=== PATIENT | male | born 1980 | race Caucasian/White ===

== ENCOUNTER 2017-01-20 01:44 | Inpatient (IN) | payer MEDICAID ==
[~2017-01-20] VITALS: Ht 182.9 cm; Wt 66.0 kg
[2017-01-20] VITALS (8 sets, daily range): BP systolic 113–135; BP diastolic 59–85; PULSE 53–68; RESP 17–18; TEMP 96.7–97.9; O2SAT 98–100
[2017-01-20] MEDS ORDERED: KETOROLAC TROMETHAMINE 30 MG/ML (IVP) VIAL IVP ONE (02:45)
[2017-01-20] MEDS ORDERED: TETANUS/DIPHTHERIA TOXOID ADULT 0.5 ML VIAL IM ONE (02:45)
[2017-01-20 03:21] LABS: AUTOMATED NEUTROPHIL # 6.4 TH/MM3 (1.8-7.7); BASOPHIL % 0.3 % (0.0-2.0); EOSINOPHIL # 0.1 TH/MM3 (0-0.4); EOSINOPHIL % 1.1 % (0.0-4.0); HEMATOCRIT 42.2 % (39.0-51.0); HEMO FLAGS DIFF FINAL; LYMPH % 17.3 % (9.0-44.0); LYMPHOCYTE # 1.7 TH/MM3 (1.0-4.8); MEAN CELL VOLUME 87.1 FL (80.0-100.0); MEAN CORPUSCULAR HEMOGLOBIN 29.7 PG (27.0-34.0); MEAN CORPUSCULAR HGB CONC 34.1 % (32.0-36.0); MONO % 15.6 % (0.0-8.0); NEUT % 65.7 % (16.0-70.0); PLATELET COUNT 202 TH/MM3 (150-450); RED BLOOD COUNT 4.84 MIL/MM3 (4.50-5.90); RED CELL DISTRIBUTION WIDTH 13.5 % (11.6-17.2); WHITE BLOOD COUNT 9.8 TH/MM3 (4.0-11.0)
[2017-01-20] MEDS ORDERED: AMPICILLIN-SULBACTAM INJ 3 GM in SODIUM CHLORIDE 0.9% INJ 100 ML IV ONE (03:30)
[2017-01-20 03:41] LABS: BICARBONATE 33.8 MEQ/L (21.0-32.0); POTASSIUM 5.2 MEQ/L (3.5-5.1)
--- NOTE | 2017-01-20 03:56 | RADRPT ---
EXAM DATE/TIME: 01/20/2017 03:12 [place] COMPARISON: No previous studies available for comparison. INDICATIONS : Dog bite to left hand, possible foreign body. MEDICAL HISTORY : None. SURGICAL HISTORY : None. ENCOUNTER: Initial ACUITY: 1 day PAIN SCORE: 8/10 LOCATION: Left hand FINDINGS: Three view examination of the left hand demonstrates no soft tissue swelling, dislocation, or fractur e. The carpal bones appear intact. The interphalangeal and metacarpophalangeal joints are intact. Bony mineralization is normal. CONCLUSION: Unremarkable examination of the left hand. Bipin Palacios MD on January 20, 2017 at 3:54 Board Certified Radiologist. This report was verified electronically.
--- NOTE | 2017-01-20 04:09 | PD ---
HPI Chief Complaint: Bite or Sting Time Seen by Provider: 02:34 Travel History International Travel<30 days: No Contact w/Intl Traveler<30days: No Traveled to known affect area: No History of Present Illness HPI 36-year-old male presents to the emergency department for evaluation of swelling and pain and decreased range of motion of the digits of the left hand secondary to injury sustained from a dog bite. Patient states that on morning 01/18/17 he was his dog and his [id number]'s dog from fighting. Both dogs are healthy and immunizations are current. Patient states that he accidentally was bitten on the dorsum of his hand with numerous scrapes to the digits. Patient also reports that 1 week ago he was injured on the left foot by the dog's from a dog fight. Patient does not know his tetanus status. Patient is right-handed. Patient is not diabetic. Patient is not notice any ascending erythema or axillary tenderness or lymphadenopathy. Patient reports subjective fever and chills. Patient states as soon as the bite occurred he was concerned that he had broken his hand but did not decided to come for medical attention until this time. Patient states that sensation is intact but decreased range of motion secondary to soft tissue swelling. The patient rates his pain 4/0 in intensity. PFSH Past Medical History Narrative Medical Leukemia in remission; no surgery; tobacco use; nursing notes reviewed Medical History: Denies Significant Hx Autoimmune Disease: Yes (LEUKEMIA THAT SAYS BEEN REMISSION) Diminished Hearing: No Tetanus Vaccination: Unknown Influenza Vaccination: No Past Surgical History Surgical History: No Previous Surgery Social History Alcohol Use: No Tobacco Use: Yes (1/2 PPD) Substance Use: No Allergies-Medications (Allergen,Severity, Reaction): Coded Allergies: No Known Allergies (Unverified , 01/20/17) Reported Meds & Prescriptions Reported Meds & Active Scripts Active No Active Prescriptions or Reported Medications Review of Systems Except as stated in HPI: all other systems reviewed are Neg General / Constitutional: Positive: Fever (subjective), Chills (subjective) HENT: No: Headaches, Congestion Cardiovascular: No: Chest Pain or Discomfort Respiratory: No: Shortness of Breath Gastrointestinal: No: Nausea, Vomiting Genitourinary: No: Dysuria, Flank Pain Musculoskeletal: Positive: Myalgias, Arthralgias, Limited ROM (secondary to swelling digits of left hand), Pain Skin: Positive Other (left hand swelling and superficial abrasions), No Rash Neurologic: No: Weakness Psychiatric: No: Anxiety Endocrine: No: Heat Intolerance Hematologic/Lymphatic: No: Easy Bruising Physical Exam Narrative GENERAL: Well-developed well-nourished male in no acute distress no respiratory distress SKIN: Warm and dry. HEAD: Normocephalic. EYES: No scleral icterus. No injection or drainage. NECK: Supple, trachea midline. No JVD or lymphadenopathy. CARDIOVASCULAR: Regular rate and rhythm without murmurs, gallops, or rubs. RESPIRATORY: Breath sounds equal bilaterally. No accessory muscle use. GASTROINTESTINAL: Abdomen soft, non-tender, nondistended. MUSCULOSKELETAL: No cyanosis, or edema. Attention left hand left upper extremity soft tissue swelling affecting the second third and fourth digits of the left hand with puncture wound overlying the third metacarpal just proximal to the MCP and puncture wound richards aspect just proximal to the 4th MCP and proximal and lateral/ulnar aspect of the 5th MCP; otherwise superficial abrasions affecting the dorsum of the digits of the left hand; sensation intact ; capillary refill brisk and less than 2 seconds per digit. Patient has intact extension of each digit; however thumb apposition is limited by soft tissue swelling affecting the third and fourth and fifth digits. BACK: Nontender without obvious deformity. No CVA tenderness. Data Data Last Documented VS Vital Signs Date Time Temp Pulse Resp B/P Pulse Ox O2 Delivery O2 Flow Rate FiO2 01/20/17 04:38 62 18 119/85 100 Room Air 01/20/17 01:47 97.7 Orders Basic Metabolic Panel (Bmp) (01/20/17 02:34) Complete Blood Count With Diff (01/20/17 02:34) Blood Culture (01/20/17 02:34) Wound Culture And Gram Stain (01/20/17 02:34) Iv Access Insert/Monitor (01/20/17 02:34) Ketorolac Inj (Toradol Inj) (01/20/17 02:45) Tetanus/Diphtheria Tox Adult (Tetanus/Di (01/20/17 02:45) Hand, Complete ([id number]) (01/20/17 ) Lactic Acid (01/20/17 02:36) Ampicillin-Sulbactam Inj (Unasyn Inj) (01/20/17 03:30) NPO (01/20/17 05:23) Admit Order (Ed Use Only) (01/20/17 ) Diet Npo (01/21/17 Breakfast) Diet Npo (01/20/17 Breakfast) ^ Saline Lock (01/20/17 06:20) Resp Oxygen Douglas C Titrat 1-4 L (01/20/17 ) Notify Dr: Other (01/20/17 06:20) Sodium Chloride 0.9% Flush (Ns Flush) (01/20/17 09:00) Sodium Chloride 0.9% Flush (Ns Flush) (01/20/17 06:30) Consult Hand Surgery (01/20/17 ) Labs Laboratory Tests Test 01/20/17 02:40 White Blood Count 9.8 TH/MM3 Red Blood Count 4.84 MIL/MM3 Hemoglobin 14.4 GM/DL Hematocrit 42.2 % Mean Corpuscular Volume 87.1 FL Mean Corpuscular Hemoglobin 29.7 PG Mean Corpuscular Hemoglobin 34.1 % Concent Red Cell Distribution Width 13.5 % Platelet Count 202 TH/MM3 Mean Platelet Volume 8.4 FL Neutrophils (%) (Auto) 65.7 % Lymphocytes (%) (Auto) 17.3 % Monocytes (%) (Auto) 15.6 % Eosinophils (%) (Auto) 1.1 % Basophils (%) (Auto) 0.3 % Neutrophils # (Auto) 6.4 TH/MM3 Lymphocytes # (Auto) 1.7 TH/MM3 Monocytes # (Auto) 1.5 TH/MM3 Eosinophils # (Auto) 0.1 TH/MM3 Basophils # (Auto) 0.0 TH/MM3 CBC Comment DIFF FINAL Differential Comment Sodium Level 140 MEQ/L Potassium Level 5.2 MEQ/L Chloride Level 103 MEQ/L Carbon Dioxide Level 33.8 MEQ/L Anion Gap 3 MEQ/L Blood Urea Nitrogen 27 MG/DL Creatinine 1.05 MG/DL Estimat Glomerular Filtration 80 ML/MIN Rate Random Glucose 94 MG/DL Lactic Acid Level 1.7 mmol/L Calcium Level 9.2 MG/DL MDM Medical Decision Making Medical Screen Exam Complete: Yes Emergency Medical Condition: Yes Medical Record Reviewed: Yes Interpretation(s) CBC & BMP Diagram 01/20/17 02:40 Vital Signs Date Time Temp Pulse Resp B/P Pulse Ox O2 Delivery O2 Flow Rate FiO2 01/20/17 01:47 97.7 68 135/83 98 Left Hand: FINDINGS: Three view examination of the left hand demonstrates no soft tissue swelling, dislocation, or fracture. The carpal bones appear intact. The interphalangeal and metacarpophalangeal joints are intact. Bony mineralization is normal. CONCLUSION: Unremarkable examination of the left hand. Bipin Palacios MD on January 20, 2017 at 3:54 Board Certified Radiologist. This report was verified electronically. Differential Diagnosis Animal/dog bite, puncture wound, abscess, fracture, tenosynovitis, tendon injury , neurovascular injury, retained foreign body Narrative Course IV access obtained specimens collected and sent for resulting tetanus status updated imaging study ordered Patient administered Unasyn 3 g IV piggyback No evidence for fracture or retained foreign body by imaging of the left hand. Lab values resulted total white cell count normal without left shift, lactic acid not elevated, vital signs are normal range without tachycardia or tachypnea ; patient does not meet sirs criteria The patient is aware of and agreeable with blood and for admission for IV antibiotics and hand surgery consult Physician Communication Physician Communication call placed to Hand surgeon nurse companion discussed with Dr Kyle; discussed with Dr Yancey for admission Diagnosis Primary Impression: Animal bite of hand Qualified Code: S61.452A - Animal bite of hand, left, initial encounter Admitting Information Admitting Physician Requests: Admit Scripts No Active Prescriptions or Reported Meds Tiffanie Miller MD Jan 20, 2017 04:09
[2017-01-20] MEDS ORDERED: SODIUM CHLORIDE 0.9% FLUSH 10 ML FLUSH IVF PRN (06:30)
[2017-01-20] MEDS ORDERED: SODIUM CHLORIDE 0.9% FLUSH 10 ML FLUSH IV FLUSH PRN (07:00)
[2017-01-20] MEDS ORDERED: ONDANSETRON HCL 4 MG/2 ML VIAL IVP PRN (07:00)
[2017-01-20] MEDS ORDERED: LACTULOSE SYRUP 20 GM/30 ML CUP PO PRN (07:00)
[2017-01-20] MEDS ORDERED: MAGNESIUM HYDROXIDE SUSP 30 ML CUP PO PRN (07:00)
[2017-01-20] MEDS ORDERED: BISACODYL 10 MG SUPP RECTAL PRN (07:00)
[2017-01-20] MEDS ORDERED: SENNOSIDES 8.6 MG TAB PO PRN (07:00)
--- NOTE | 2017-01-20 07:01 | HHI.HP ---
HPI Service [facility] Hospitalists Primary Care Physician No Primary Care Physician Admission Diagnosis Left hand cellulitis; animal/dog bite Diagnoses: Chief Complaint: pain in left hand, fever, chills Travel History International Travel<30 Days: No Contact w/Intl Traveler <30 Da: No Traveled to Known Affected Are: No History of Present Illness This is a 36-year-old male without significant past medical history who presents to [facility] complaining of a dog bite in his left hand. The patient states that this past he was bitten by a dog that belongs to her [id number]. The patient states that he was having some pain, however he started experiencing worsening pain on Sunday night. He also states he has had fevers and chills. Denies chest pain, short of breath, denies dysuria, denies abdominal pain. Patient states the dog is current on vaccines. Review of Systems As per history of present illness, other systems reviewed by me and negative Past Family Social History Past Medical History Psoriasis Past Surgical History Denies Reported Medications No Active Prescriptions or Reported Medications Allergies: Coded Allergies: No Known Allergies (Unverified , 01/20/17) Active Ordered Medications Current Medications Medications (Trade) Dose Ordered Sig/Allison Route Start Time Stop Time Status Last Admin (NS Flush) 2 ml BID IV FLUSH 01/20/17 09:00 (NS Flush) 2 ml UNSCH PRN IVF 01/20/17 06:30 Family History There is family history of breast and lung cancer Social History She smokes half a pack per day. Patient denies drinking alcohol Patient denies illicit drug use. The patient is single and has 1 children with his fiance. Physical Exam Vital Signs Vital Signs Date Time Temp Pulse Resp B/P Pulse Ox O2 Delivery O2 Flow Rate FiO2 01/20/17 06:23 98 01/20/17 04:38 62 18 119/85 100 Room Air 01/20/17 01:47 97.7 68 135/83 98 Physical Exam GENERAL: This is a well-nourished, well-developed patient, in no apparent distress. SKIN: No rashes, ecchymoses or lesions. Cool and dry. HEAD: Atraumatic. Normocephalic. No temporal or scalp tenderness. EYES: Pupils equal round and reactive. Extraocular motions intact. No scleral icterus. No injection or drainage. ENT: Nose without bleeding, purulent drainage or septal hematoma. Throat without erythema, tonsillar hypertrophy or exudate. Uvula midline. Airway patent. NECK: Trachea midline. No JVD or lymphadenopathy. Supple, nontender, no meningeal signs. CARDIOVASCULAR: Regular rate and rhythm without murmurs, gallops, or rubs. RESPIRATORY: Clear to auscultation. Breath sounds equal bilaterally. No wheezes , rales, or rhonchi. GASTROINTESTINAL: Abdomen soft, non-tender, nondistended. No hepato-splenomegaly , or palpable masses. No guarding. MUSCULOSKELETAL: Left hand is swollen, erythematous and there are puncture connelly on the hand. There is no drainage observed. Her pulse is palpable on both upper extremities. NEUROLOGICAL: Awake and alert. Cranial nerves II through XII intact. Motor and sensory grossly within normal limits. Five out of 5 muscle strength in all muscle groups. Normal speech. Laboratory Laboratory Tests Test 01/20/17 02:40 White Blood Count 9.8 Red Blood Count 4.84 Hemoglobin 14.4 Hematocrit 42.2 Mean Corpuscular Volume 87.1 Mean Corpuscular Hemoglobin 29.7 Mean Corpuscular Hemoglobin 34.1 Concent Red Cell Distribution Width 13.5 Platelet Count 202 Mean Platelet Volume 8.4 Neutrophils (%) (Auto) 65.7 Lymphocytes (%) (Auto) 17.3 Monocytes (%) (Auto) 15.6 Eosinophils (%) (Auto) 1.1 Basophils (%) (Auto) 0.3 Neutrophils # (Auto) 6.4 Lymphocytes # (Auto) 1.7 Monocytes # (Auto) 1.5 Eosinophils # (Auto) 0.1 Basophils # (Auto) 0.0 CBC Comment DIFF FINAL Differential Comment Sodium Level 140 Potassium Level 5.2 Chloride Level 103 Carbon Dioxide Level 33.8 Anion Gap 3 Blood Urea Nitrogen 27 Creatinine 1.05 Estimat Glomerular Filtration 80 Rate Random Glucose 94 Lactic Acid Level 1.7 Calcium Level 9.2 Date/Time Procedure Status Source Growth 01/20/17 02:45 Gram Stain Received Wound Hand Pending 01/20/17 02:45 Wound Culture Received Wound Hand Pending 01/20/17 02:40 Aerobic Blood Culture Received Blood Peripheral Pending 01/20/17 02:40 Anaerobic Blood Culture Received Blood Peripheral Pending Result Diagram: 01/20/17 0240 01/20/17 0240 Imaging Last Impressions Hand X-Ray 01/20/17 0000 Signed Impressions: Service Date/Time: Friday, January 20, 2017 03:12 - CONCLUSION: Unremarkable examination of the left hand. Bipin Palacios MD Reviewed by me Assessment and Plan Problem List: (1) Animal bite of hand ICD Code: S61.459A Status: Acute (2) Cellulitis of hand, left ICD Code: L03.114 Status: Acute (3) Hyperkalemia ICD Code: E87.5 Status: Acute Assessment and Plan The patient to the medical floor Continue IV antibiotics, patient was given IV Unasyn Hand surgery consultation - ED physician contacted Dr. Kyle Keep nothing by mouth IV fluids Pain control with IV morphine. Subcutaneous heparin for DVT prophylaxis PPI for GI prophylaxis. Treatment mild hyperkalemia 5.2 with IV fluids Code Status Full code Discussed Condition With ED physician, patient Physician Certification 2 Midnight Certification Type: Admission for Inpatient Services Order for Inpatient Services The services are ordered in accordance with Medicare regulations or non- Medicare payer requirements, as applicable. In the case of services not specified as inpatient-only, they are appropriately provided as inpatient services in accordance with the 2-midnight benchmark. Estimated LOS (days): 2 days is the estimated time the patient will need to remain in the hospital, assuming treatment plan goals are met and no additional complications. Post-Hospital Plan: Home Problem Qualifiers (1) Animal bite of hand: Qualified Code: S61.452A - Animal bite of hand, left, initial encounter Beni Ortiz MD Jan 20, 2017 07:01
[2017-01-20] MEDS: DOCUSATE SODIUM 50 MG/SENNA 8.6 MG TAB PO SCH ×2 (08:20→20:49)
[2017-01-20] MEDS: AMPICILLIN-SULBACTAM INJ 3 GM in SODIUM CHLORIDE 0.9% INJ 100 ML IV SCH ×3 (08:22→20:48)
[2017-01-20] MEDS: SODIUM CHLOR 0.9% 1000 ML INJ 1,000 ML IV SCH ×3 (08:22→20:48)
--- NOTE | 2017-01-20 08:30 | HHI.PR ---
Subjective Remarks resting comfortably. pain is controlled. no fever. d/w the RN. Objective Vitals Vital Signs Date Time Temp Pulse Resp B/P Pulse Ox O2 Delivery O2 Flow Rate FiO2 01/20/17 07:00 97.6 55 17 117/83 100 Room Air 01/20/17 06:23 98 01/20/17 04:38 62 18 119/85 100 Room Air 01/20/17 01:47 97.7 68 135/83 98 Result Diagram: 01/20/17 0240 01/20/17 0240 Imaging Last Impressions Hand X-Ray 01/20/17 0000 Signed Impressions: Service Date/Time: Friday, January 20, 2017 03:12 - CONCLUSION: Unremarkable examination of the left hand. Bipin Palacios MD Objective Remarks GENERAL: This is a well-nourished, well-developed patient, in no apparent distress. CARDIOVASCULAR: Regular rate and regular rhythm without murmurs, gallops, or rubs. RESPIRATORY: Clear to auscultation. Breath sounds equal bilaterally. No wheezes , rales, or rhonchi. GASTROINTESTINAL: Abdomen soft, non-tender, nondistended. Normal, active bowel sounds MUSCULOSKELETAL:left hand with erythema and swelling NEURO: Alert & Oriented x4 to person, place, time, situation. Moves all ext x4 Procedures none Medications and IVs Current Medications Ketorolac Tromethamine (Toradol Inj) 30 mg ONCE ONCE IVP Last administered on 01/20/17 02:54; Start 01/20/17 at 02:45; Stop 01/20/17 at 02:46; Status DC Tetanus/ Diphtheria Toxoids 0.5 ml 0.5 ml ONCE ONCE IM Last administered on 01/20 02:58; Start 01/20/17 at 02:45; Stop 01/20/17 at 02:46; Status DC Ampicillin Sodium/ Sulbactam Sodium/ Sodium Chloride (Unasyn Inj/NS Inj) 100 ml @ 200 mls/hr ONCE ONCE IV Last administered on 01/20/17 03:47; Start 01/20/17 at 03:30; Stop 01/20/17 at 03:59; Status DC Sodium Chloride (NS Flush) 2 ml BID IV FLUSH ; Start 01/20/17 at 09:00; Stop 01/20 at 09:00; Status DC Sodium Chloride 2 ml 2 ml UNSCH PRN IVF FLUSH AFTER USING IV ACCESS; Start 01/20 at 06:30; Stop 01/20/17 at 07:11; Status DC Sodium Chloride (NS 1000 ml Inj) 1,000 ml @ 100 mls/hr Q10H IV Last administered on 01/20/17 08:22; Start 01/20/17 at 08:00 Sodium Chloride (NS Flush) 2 ml UNSCH PRN IV FLUSH FLUSH AFTER USING IV ACCESS ; Start 01/20/17 at 07:00 Sodium Chloride (NS Flush) 2 ml BID IV FLUSH ; Start 01/20/17 at 09:00 Ondansetron HCl (Zofran Inj) 4 mg Q6H PRN IVP NAUSEA OR VOMITING; Start at 07:00 Heparin Sodium (Porcine) (Heparin Inj) 5,000 units Q8H SQ ; Start 01/20/17 at 07: 00; Status UNV Senna/Docusate Sodium (Paulina-Colace) 1 tab BID PO ; Start 01/20/17 at 09:00 Magnesium Hydroxide (Milk Of Magnesia Liq) 30 ml Q12H PRN PO MILD - MODERATE CONSTIPATION; Start 01/20/17 at 07:00 Sennosides (Senokot) 17.2 mg Q12H PRN PO MODERATE - SEVERE CONSTIPATION; Start 01/20/17 at 07:00 Bisacodyl (Dulcolax Supp) 10 mg DAILY PRN RECTAL SEVERE CONSITIPATION; Start at 07:00 Lactulose 30 ml 30 ml DAILY PRN PO SEVERE CONSITIPATION; Start 01/20/17 at 07:00 Ampicillin Sodium/ Sulbactam Sodium/ Sodium Chloride (Unasyn Inj/NS Inj) 100 ml @ 200 mls/hr Q6H IV Last administered on 01/20/17 08:22; Start 01/20/17 at 09: 00 Oxycodone/ Acetaminophen (Percocet 5-325 Mg) 1 tab Q4H PRN PO PAIN SCALE 1 TO 4; Start 01/20/17 at 07:15 Oxycodone/ Acetaminophen (Percocet 5-325 Mg) 2 tab Q4H PRN PO PAIN SCALE 5 TO 10; Start 01/20/17 at 07:15 A/P Assessment and Plan A/P - left hand dog-bite cellulitis continue with IV antibiotics- continue with pain control- follow the cultures. hand surgery consulted. Love Dove MD Jan 20, 2017 08:30
[2017-01-20] MEDS: SODIUM CHLORIDE 0.9% FLUSH 10 ML FLUSH IV FLUSH SCH ×2 (08:54→20:48)
[2017-01-20] MEDS ORDERED: SODIUM CHLORIDE 0.9% FLUSH 10 ML FLUSH IV FLUSH SCH (09:00)
[2017-01-20] MEDS ORDERED: HEPARIN SODIUM - SQ 10,000 UNITS/ML VIAL SQ SCH (09:00)
[2017-01-20] MEDS ORDERED: ONDANSETRON HCL 4 MG/2 ML VIAL IV PUSH ONE (12:00)
[2017-01-20] MEDS ORDERED: PROPOFOL 200 MG/20 ML AMP IV ONE (12:00)
[2017-01-20] MEDS: oxyCODONE/ACETAMINOPHEN 5 MG/325 MG TAB PO PRN ×2 (15:40→23:49)
[2017-01-20] MEDS ORDERED: NEOMYCIN/POLYMYXIN 1 ML G.U. IRRIGANT TOPICAL ONE (19:50)
[2017-01-20] MEDS ORDERED: LIDOCAINE HCL 2% 50 ML VIAL INFIL ONE (20:10)
[2017-01-20] MEDS ORDERED: *MEPERIDINE 25 MG INJ VIAL PERIprocedural Use ONLY ONE (20:44)
--- NOTE | 2017-01-20 21:12 | PD.ORT.PN ---
Subjective Subjective Remarks Patient preoperatively reported difficulty flexing and extending fingers, specifically ring and middle fingers of left hand. Denies paresthesias. Objective Vitals Vital Signs Date Time Temp Pulse Resp B/P Pulse Ox O2 Delivery O2 Flow Rate FiO2 01/20/17 21:00 46 12 148/96 100 Nasal Cannula 2 01/20/17 20:45 48 12 141/92 100 Nasal Cannula 2 01/20/17 20:34 96.9 51 12 139/93 100 Nasal Cannula 2 01/20/17 15:59 96.7 59 18 123/59 98 01/20/17 11:55 96.8 57 18 113/75 99 01/20/17 09:50 97.8 53 18 116/72 98 01/20/17 07:00 97.6 55 17 117/83 100 Room Air 01/20/17 06:23 98 01/20/17 04:38 62 18 119/85 100 Room Air 01/20/17 01:47 97.7 68 135/83 98 I/O 01/19/17 01/19/17 01/19/17 01/20/17 01/20/17 01/20/17 06:59 14:59 22:59 06:59 14:59 22:59 Intake Total 700 ml Output Total 0 ml Balance 700 ml Intake Oral 0 ml IV Total 100 ml Other 600 ml Output Urine Total 0 ml Estimated Blood Loss 0 ml Other 0 ml # Voids 2 Result Diagram: 01/20/17 0240 01/20/17 0240 Imaging Last 24 hours Impressions Hand X-Ray 01/20/17 0000 Signed Impressions: Service Date/Time: Friday, January 20, 2017 03:12 - CONCLUSION: Unremarkable examination of the left hand. Bipin Palacios MD Objective Remarks Dressing in place, <2 sec capillary refill all fingers, able to wiggle fingers, sitlt m/u/r Assessment & Plan Assessment and Plan 36yM s/p dog bite left hand POD0 s/p I&D abscess left hand -Intraoperatively pus in dorsal wound just proximal to 3rd mcp, no involvement of joint, packing in place, other wounds with no obvious purulence & chromic in place -Continue IV Ab per primary team, follow cultures -Elevate hand, ROM left hand -possible d/c Tue or once cultures result and ROM improved, will follow Tanvi Kyle MD 1, 2017 21:12
--- NOTE | 2017-01-20 22:04 | MB ---
cc: SYDNEY SARABIA DATE OF CONSULTATION 01/20/2017 REASON FOR CONSULTATION Dog bite left hand. 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 He states that he was breaking up a dog bite between two pit bulls on 01/18/2017 when the dog bit his left hand, specifically over the dorsum of the left hand at the level of the metacarpal phalangeal joint and volarly over the ring finger at the level of the A1 oneal. The patient cleaned the wounds and iced the hand and presented to the emergency room on 01/20/2017 for worsening swelling of the left hand, subjective fevers and decreased range of motion of the left hand. He is right hand dominant. He denies any other significant prior injury to the left hand. He does have a history of psoriasis and was on Enbrel but is not taking it at this time due to insurance issues. The patient denies significant paresthesias in the hand. He reports pain and decreased range of motion. He does have some superficial scratches on the right hand but has good range of motion of the right hand. PAST MEDICAL HISTORY 1. Leukemia in remission. 2. Psoriasis. PAST SURGICAL HISTORY Denies. SOCIAL HISTORY Smokes half pack per day. Denies drug use or alcohol use, currently unemployed. ALLERGIES NO KNOWN DRUG ALLERGIES. MEDICATIONS Denies, past use of Enbrel. PHYSICAL EXAMINATION VITAL SIGNS: Temperature was 97.7, pulse 62, blood pressure 119/85. Exam of the left hand shows multiple bites, again the most prominent dorsally just proximal to the third metacarpal phalangeal joint and volarly at the level of the A1 oneal of the ring finger. He also has more superficial bites over the small finger volarly and dorsally over the ring finger at the level of the PIP joint. Function is intact of FDS and FDP to all of the fingers. The patient has significant difficulty in making a fist with the left hand due to the swelling over the left hand. No pain with range of motion of the wrist. Sensation grossly intact in the median, ulnar abd radial distribution 2+ radial pulse. No ascending erythema. LABORATORY DATA White count 9.8, CRP 4.78, ESR 12. IMAGING STUDIES X-rays shows no evidence of fracture. ASSESSMENT/PLAN A 36-year-old male status post dog bite to the left hand with swelling on the dorsum of the left hand at the level of the third metacarpal phalangeal joint and volarly over the A1 oneal. The patient has been in the hospital on IV antibiotics for approximately eight hours with minimal improvement in his symptoms. As of this time, I recommended surgical intervention including debridement of the extensor and flexor tendon sheaths. Surgery is indicated and he elected to proceed. He will remain in the hospital on IV antibiotics. He understands the importance of elevating the hand and working on range of motion. Risks were explained to include but currently limited to sepsis, wound complications, persistent infection, persistent stiffness of the hand, difficulty with the hand and he elects to proceed. MD BRITNEY Urbina/ /9:37 PM /9:52 PM KERRI
[2017-01-20] MEDS ORDERED: fentaNYL CITRATE 250 MCG/5 ML AMP ONE (23:53)
[2017-01-21 00:15] VITALS: BP 122/76; PULSE 56; RESP 16; TEMP 97.8; O2SAT 99
[2017-01-21] MEDS: AMPICILLIN-SULBACTAM INJ 3 GM in SODIUM CHLORIDE 0.9% INJ 100 ML IV SCH ×4 (03:25→20:46)
[2017-01-21 04:45] VITALS: BP 116/75; PULSE 56; RESP 18; TEMP 98; O2SAT 99
--- NOTE | 2017-01-21 06:18 | MP ---
cc: TANVI KYLE DATE OF SURGERY: 01/20/2017 PREOPERATIVE DIAGNOSIS Dog bite left hand. POSTOPERATIVE DIAGNOSIS Dog bite left hand. PROCEDURE 1. Incision and drainage abscess extensor tendon sheath, left hand 2. Incision and drainage flexor tendon sheath, left ring finger. SURGEON Dr. Tanvi Kyle ANESTHESIA General and local TOURNIQUET TIME 11 minutes at 250 mmHg. SPECIMEN Cultures x2 DRAINS Packing. INDICATIONS FOR PROCEDURE Gonzalez Patton is a 36-year-old male who sustained a dog bite to the left hand on 01/18/2017. He did not present for evaluation to the hospital until 01/20/2017. He noted minimal improvement while in the hospital for several hours on IV antibiotics. Due to the significant stiffness and swelling over the hand as well as elevation in the CRP, I recommended incision and drainage. He elected to proceed. Risks were explained but not limited to sepsis, persistent infection, wound complications, stiffness, pain, need for additional procedures, long-term dysfunction of the hand, and he elected to proceed. DESCRIPTION OF PROCEDURE The patient was identified in the preoperative holding area. The correct extremity was marked. The patient was taken to the operating room. Anesthesia was induced. The left upper extremity was prepped and draped in normal sterile fashion. Upon prepping the hand, there was obvious purulent drainage from the dorsal wound just proximal to the third metacarpal phalangeal joint. This was sent for culture. Then tourniquet was inflated without Esmarch for 11 minutes to 250 mmHg. The dorsal wound was extended proximally and distally, and this was a wound with the most significant purulence. This was irrigated with 3 liters of antibiotic saline. The wound over the volar aspect of the ring finger at the level of the A1 oneal was also incised and irrigated along the flexor tendon sheath, although there was not significant purulence in this wound. The other wounds over the volar aspect of the small finger as well as the dorsal PIP of the ring finger was also slightly opened and irrigated without significant purulence. These wounds were closed loosely with chromic. The major wound again on the dorsum of the hand with packing was placed in addition to loose chromic. Tourniquet was released. Hemostasis obtained, 15 cc of 2% lidocaine with no epinephrine was used for local anesthesia. The patient was placed into a soft dressing. He will remain in the hospital on IV antibiotics. We will follow the cultures to work with therapy for elevation and range of motion of his fingers. He will likely be in the hospital for approximately 3 days and I will continue to see him in followup. No evidence of any injury to any of the extensor flexor tendons. MD BRITNEY Urbina/DONY /9:43 PM /6:12 AM [facility]
[2017-01-21 07:54] VITALS: BP 105/66; PULSE 55; RESP 18; TEMP 97.4; O2SAT 99
[2017-01-21] MEDS: SODIUM CHLORIDE 0.9% FLUSH 10 ML FLUSH IV FLUSH SCH ×2 (08:55→20:46)
[2017-01-21] MEDS: DOCUSATE SODIUM 50 MG/SENNA 8.6 MG TAB PO SCH ×2 (09:00→20:47)
[2017-01-21] MEDS: oxyCODONE/ACETAMINOPHEN 5 MG/325 MG TAB PO PRN ×3 (09:04→20:45)
[2017-01-21 09:46] LABS: AUTOMATED NEUTROPHIL # 2.5 TH/MM3 (1.8-7.7); BASOPHIL % 0.8 % (0.0-2.0); EOSINOPHIL # 0.1 TH/MM3 (0-0.4); EOSINOPHIL % 2.6 % (0.0-4.0); HEMO FLAGS DIFF FINAL; LYMPH % 28.6 % (9.0-44.0); LYMPHOCYTE # 1.3 TH/MM3 (1.0-4.8); MEAN CELL VOLUME 88.1 FL (80.0-100.0); MEAN CORPUSCULAR HEMOGLOBIN 28.5 PG (27.0-34.0); MEAN CORPUSCULAR HGB CONC 32.4 % (32.0-36.0); PLATELET COUNT 145 TH/MM3 (150-450); RED BLOOD COUNT 3.97 MIL/MM3 (4.50-5.90); RED CELL DISTRIBUTION WIDTH 13.6 % (11.6-17.2); WHITE BLOOD COUNT 4.5 TH/MM3 (4.0-11.0)
--- NOTE | 2017-01-21 10:02 | HHI.PR ---
Subjective Remarks resting comfortably with no distress. pain is controlled. no fever. Objective Vitals Vital Signs Date Time Temp Pulse Resp B/P Pulse Ox O2 Delivery O2 Flow Rate FiO2 01/21/17 07:54 97.4 55 18 105/66 99 01/21/17 04:45 98.0 56 18 116/75 99 01/21/17 00:15 97.8 56 16 122/76 99 01/20/17 21:00 46 12 148/96 100 Nasal Cannula 2 01/20/17 20:45 48 12 141/92 100 Nasal Cannula 2 01/20/17 20:34 96.9 51 12 139/93 100 Nasal Cannula 2 01/20/17 20:30 97.9 64 17 115/80 98 01/20/17 15:59 96.7 59 18 123/59 98 01/20/17 11:55 96.8 57 18 113/75 99 I/O 01/20/17 01/20/17 01/20/17 01/21/17 01/21/17 01/21/17 07:00 15:00 23:00 07:00 15:00 23:00 Intake Total 1100 ml 800 ml Output Total 0 ml Balance 1100 ml 800 ml Intake Oral 400 ml 800 ml IV Total 100 ml Other 600 ml Output Urine Total 0 ml Estimated Blood Loss 0 ml Other 0 ml # Voids 2 3 # Bowel Movements 0 0 Result Diagram: 01/21/17 0855 01/20/17 0240 Imaging Last Impressions Hand X-Ray 01/20/17 0000 Signed Impressions: Service Date/Time: Friday, January 20, 2017 03:12 - CONCLUSION: Unremarkable examination of the left hand. Bipin Palacios MD Objective Remarks GENERAL: This is a well-nourished, well-developed patient, in no apparent distress. CARDIOVASCULAR: Regular rate and regular rhythm without murmurs, gallops, or rubs. RESPIRATORY: Clear to auscultation. Breath sounds equal bilaterally. No wheezes , rales, or rhonchi. GASTROINTESTINAL: Abdomen soft, non-tender, nondistended. Normal, active bowel sounds MUSCULOSKELETAL:left hand covered with clean dressing. NEURO: Alert & Oriented x4 to person, place, time, situation. Moves all ext x4 Procedures 1. Incision and drainage abscess extensor tendon sheath, left hand 2. Incision and drainage flexor tendon sheath, left ring finger. Medications and IVs Current Medications Ketorolac Tromethamine (Toradol Inj) 30 mg ONCE ONCE IVP Last administered on 01/20/17 02:54; Start 01/20/17 at 02:45; Stop 01/20/17 at 02:46; Status DC Tetanus/ Diphtheria Toxoids 0.5 ml 0.5 ml ONCE ONCE IM Last administered on 01/20 02:58; Start 01/20/17 at 02:45; Stop 01/20/17 at 02:46; Status DC Ampicillin Sodium/ Sulbactam Sodium/ Sodium Chloride (Unasyn Inj/NS Inj) 100 ml @ 200 mls/hr ONCE ONCE IV Last administered on 01/20/17 03:47; Start 01/20/17 at 03:30; Stop 01/20/17 at 03:59; Status DC Sodium Chloride (NS Flush) 2 ml BID IV FLUSH ; Start 01/20/17 at 09:00; Stop 01/20 at 09:00; Status DC Sodium Chloride 2 ml 2 ml UNSCH PRN IVF FLUSH AFTER USING IV ACCESS; Start 01/20 at 06:30; Stop 01/20/17 at 07:11; Status DC Sodium Chloride (NS 1000 ml Inj) 1,000 ml @ 100 mls/hr Q10H IV Last administered on 01/20/17 20:48; Start 01/20/17 at 08:00 Sodium Chloride (NS Flush) 2 ml UNSCH PRN IV FLUSH FLUSH AFTER USING IV ACCESS ; Start 01/20/17 at 07:00 Sodium Chloride (NS Flush) 2 ml BID IV FLUSH Last administered on 01/21/17 08: 55; Start 01/20/17 at 09:00 Ondansetron HCl (Zofran Inj) 4 mg Q6H PRN IVP NAUSEA OR VOMITING; Start at 07:00 Heparin Sodium (Porcine) (Heparin Inj) 5,000 units Q8H SQ ; Start 01/20/17 at 09: 00; Status Hold Senna/Docusate Sodium (Paulina-Colace) 1 tab BID PO ; Start 01/20/17 at 09:00 Magnesium Hydroxide (Milk Of Magnesia Liq) 30 ml Q12H PRN PO MILD - MODERATE CONSTIPATION; Start 01/20/17 at 07:00 Sennosides (Senokot) 17.2 mg Q12H PRN PO MODERATE - SEVERE CONSTIPATION; Start 01/20/17 at 07:00 Bisacodyl (Dulcolax Supp) 10 mg DAILY PRN RECTAL SEVERE CONSITIPATION; Start at 07:00 Lactulose 30 ml 30 ml DAILY PRN PO SEVERE CONSITIPATION; Start 01/20/17 at 07:00 Ampicillin Sodium/ Sulbactam Sodium/ Sodium Chloride (Unasyn Inj/NS Inj) 100 ml @ 200 mls/hr Q6H IV Last administered on 01/21/17 08:51; Start 01/20/17 at 09: 00 Oxycodone/ Acetaminophen (Percocet 5-325 Mg) 1 tab Q4H PRN PO PAIN SCALE 1 TO 4 Last administered on 01/21/17 09:04; Start 01/20/17 at 07:15 Oxycodone/ Acetaminophen (Percocet 5-325 Mg) 2 tab Q4H PRN PO PAIN SCALE 5 TO 10 Last administered on 01/20/17 23:49; Start 01/20/17 at 07:15 Meperidine HCl (*DEMEROL INJ PERIprocedural ONLY) 25 mg STK-MED ONCE .ROUTE Last administered on 01/20/17 20:44; Start 01/20/17 at 20:44; Stop 01/20/17 at 20: 45; Status DC Neomycin/Polymyxin (Neosporin G.u. Irr) 3 ml STK-MED ONCE TOPICAL Last administered on 01/20/17 19:50; Start 01/20/17 at 19:50; Stop 01/20/17 at 21:30; Status DC Lidocaine HCl (Xylocaine 2% Inj) 50 ml STK-MED ONCE INFIL Last administered on 01/20/17 20:10; Start 01/20/17 at 20:10; Stop 01/20/17 at 21:31; Status DC Fentanyl Citrate (fentaNYL INJ) 250 mcg STK-MED ONCE .ROUTE ; Start 01/20/17 at 23:53; Stop 01/20/17 at 23:54; Status DC A/P Assessment and Plan A/P - left hand dog-bite cellulitis s/p Incision and drainage abscess extensor tendon sheath, left hand and Incision and drainage flexor tendon sheath, left ring finger. continue with IV antibiotics- continue with pain control- follow the cultures. continue OT. hand surgery following. Love Dove MD Jan 21, 2017 10:02
[2017-01-21 10:26] LABS: ALKALINE PHOSPHATASE 42 U/L (45-117); ALT (GPT) 13 U/L (12-78); ANION GAP 3 MEQ/L (5-15); AST (GOT) 15 U/L (15-37); BICARBONATE 28.6 MEQ/L (21.0-32.0); BLOOD UREA NITROGEN 25 MG/DL (7-18); CHLORIDE 107 MEQ/L (98-107); GLOMERULAR FILTRATION RATE 98 ML/MIN (>89); POTASSIUM 4.2 MEQ/L (3.5-5.1); SODIUM (NA) 139 MEQ/L (136-145); TOTAL BILIRUBIN ADULT 0.4 MG/DL (0.2-1.0)
[2017-01-21 12:08] VITALS: BP 107/60; PULSE 51; RESP 18; TEMP 96; O2SAT 100
[2017-01-21] MEDS: SODIUM CHLOR 0.9% 1000 ML INJ 1,000 ML IV SCH ×2 (14:00→20:46)
[2017-01-21 15:49] VITALS: BP 104/65; PULSE 65; RESP 18; TEMP 97.5; O2SAT 97
--- NOTE | 2017-01-21 20:56 | PD.ORT.PN ---
Subjective Subjective Remarks Patient reports moderate pain left hand. Denies paresthesias.Reports compliance with elevation left hand Objective Vitals Vital Signs Date Time Temp Pulse Resp B/P Pulse Ox O2 Delivery O2 Flow Rate FiO2 01/21/17 15:49 97.5 65 18 104/65 97 01/21/17 12:08 96.0 51 18 107/60 100 01/21/17 07:54 97.4 55 18 105/66 99 01/21/17 04:45 98.0 56 18 116/75 99 01/21/17 00:15 97.8 56 16 122/76 99 01/20/17 21:00 46 12 148/96 100 Nasal Cannula 2 I/O 01/20/17 01/20/17 01/20/17 01/21/17 01/21/17 01/21/17 07:00 15:00 23:00 07:00 15:00 23:00 Intake Total 1100 ml 800 ml Output Total 0 ml 1 ml Balance 1100 ml 800 ml -1 ml Intake Oral 400 ml 800 ml IV Total 100 ml Other 600 ml Output Urine Total 0 ml 1 ml Estimated Blood Loss 0 ml Other 0 ml # Voids 2 3 1 # Bowel Movements 0 0 Result Diagram: 01/21/17 0855 01/21/17 0855 Imaging Last 24 hours Impressions Hand X-Ray 01/20/17 0000 Signed Impressions: Service Date/Time: Friday, January 20, 2017 03:12 - CONCLUSION: Unremarkable examination of the left hand. Bipin Palacios MD Objective Remarks Dressing changed. Significant improvement in swelling left hand. Persistent stiffness with flexion all fingers but function intact fdp/fds, sitlt m/u/r, <2 sec capillary refill, packing in place over dorsum of hand Assessment & Plan Assessment and Plan 36yM s/p dog bite left hand POD1 s/p I&D abscess left hand -Intraoperatively pus in dorsal wound just proximal to 3rd mcp, no involvement of joint, packing in place, other wounds with no obvious purulence & chromic in place -Continue IV Ab per primary team, cultures + Pasturella, d/c on oral antibiotics -Elevate hand, ROM left hand, patient educated on importance of compliance with OT and ROM -Followup in office [facility] in [place] for packing change Tanvi Kyle MD Jan 21, 2017 20:56
[2017-01-21 21:50] VITALS: BP 112/67; PULSE 59; RESP 16; TEMP 98.2; O2SAT 98
[2017-01-22 00:45] VITALS: BP 115/69; PULSE 61; RESP 17; TEMP 97.9; O2SAT 99
[2017-01-22] MEDS: AMPICILLIN-SULBACTAM INJ 3 GM in SODIUM CHLORIDE 0.9% INJ 100 ML IV SCH ×2 (03:20→08:11)
[2017-01-22 04:45] VITALS: BP 110/65; PULSE 64; RESP 19; TEMP 98.3; O2SAT 99
[2017-01-22] MEDS: oxyCODONE/ACETAMINOPHEN 5 MG/325 MG TAB PO PRN (08:21)
[2017-01-22 08:22] VITALS: BP 105/63; PULSE 62; RESP 16; TEMP 97; O2SAT 97
[2017-01-22] MEDS: SODIUM CHLORIDE 0.9% FLUSH 10 ML FLUSH IV FLUSH SCH (09:00)
[2017-01-22] MEDS: DOCUSATE SODIUM 50 MG/SENNA 8.6 MG TAB PO SCH (09:00)
[2017-01-22] MEDS: SODIUM CHLOR 0.9% 1000 ML INJ 1,000 ML IV SCH (10:38)
--- NOTE | 2017-01-22 11:26 | HHI.PR ---
Subjective Remarks resting comfortably with no distress. pain is controlled. no fever. wants to go home. d/w the RN. Objective Vitals Vital Signs Date Time Temp Pulse Resp B/P Pulse Ox O2 Delivery O2 Flow Rate FiO2 01/22/17 08:22 97.0 62 16 105/63 97 01/22/17 04:45 98.3 64 19 110/65 99 01/22/17 00:45 97.9 61 17 115/69 99 01/21/17 21:50 98.2 59 16 112/67 98 01/21/17 15:49 97.5 65 18 104/65 97 01/21/17 12:08 96.0 51 18 107/60 100 I/O 01/21/17 01/21/17 01/21/17 01/22/17 01/22/17 01/22/17 07:00 15:00 23:00 07:00 15:00 23:00 Intake Total 800 ml 900 ml 1600 ml Output Total 1 ml Balance 800 ml 899 ml 1600 ml Intake Oral 800 ml 900 ml 1600 ml Output Urine Total 1 ml # Voids 3 1 0 3 # Bowel Movements 0 0 0 Result Diagram: 01/21/17 0855 01/21/17 0855 Imaging Last Impressions Hand X-Ray 01/20/17 0000 Signed Impressions: Service Date/Time: Friday, January 20, 2017 03:12 - CONCLUSION: Unremarkable examination of the left hand. Bipin Palacios MD Objective Remarks GENERAL: This is a well-nourished, well-developed patient, in no apparent distress. CARDIOVASCULAR: Regular rate and regular rhythm without murmurs, gallops, or rubs. RESPIRATORY: Clear to auscultation. Breath sounds equal bilaterally. No wheezes , rales, or rhonchi. GASTROINTESTINAL: Abdomen soft, non-tender, nondistended. Normal, active bowel sounds MUSCULOSKELETAL:left hand covered with clean dressing. NEURO: Alert & Oriented x4 to person, place, time, situation. Moves all ext x4 Procedures 1. Incision and drainage abscess extensor tendon sheath, left hand 2. Incision and drainage flexor tendon sheath, left ring finger. Medications and IVs Current Medications Ketorolac Tromethamine (Toradol Inj) 30 mg ONCE ONCE IVP Last administered on 01/20/17t 02:54; Start 01/20/17 at 02:45; Stop 01/20/17 at 02:46; Status DC Tetanus/ Diphtheria Toxoids 0.5 ml 0.5 ml ONCE ONCE IM Last administered on 01/20 02:58; Start 01/20/17 at 02:45; Stop 01/20/17 at 02:46; Status DC Ampicillin Sodium/ Sulbactam Sodium/ Sodium Chloride (Unasyn Inj/NS Inj) 100 ml @ 200 mls/hr ONCE ONCE IV Last administered on 01/20/17 03:47; Start 01/20/17 at 03:30; Stop 01/20/17 at 03:59; Status DC Sodium Chloride (NS Flush) 2 ml BID IV FLUSH ; Start 01/20/17 at 09:00; Stop 01/20 at 09:00; Status DC Sodium Chloride 2 ml 2 ml UNSCH PRN IVF FLUSH AFTER USING IV ACCESS; Start 01/20 at 06:30; Stop 01/20/17 at 07:11; Status DC Sodium Chloride (NS 1000 ml Inj) 1,000 ml @ 100 mls/hr Q10H IV Last administered on 01/22/17 10:38; Start 01/20/17 at 08:00 Sodium Chloride (NS Flush) 2 ml UNSCH PRN IV FLUSH FLUSH AFTER USING IV ACCESS ; Start 01/20/17 at 07:00 Sodium Chloride (NS Flush) 2 ml BID IV FLUSH Last administered on 01/21/17 20: 46; Start 01/20/17 at 09:00 Ondansetron HCl (Zofran Inj) 4 mg Q6H PRN IVP NAUSEA OR VOMITING; Start at 07:00 Heparin Sodium (Porcine) (Heparin Inj) 5,000 units Q8H SQ ; Start 01/20/17 at 09: 00; Status Hold Senna/Docusate Sodium (Paulina-Colace) 1 tab BID PO ; Start 01/20/17 at 09:00 Magnesium Hydroxide (Milk Of Magnesia Liq) 30 ml Q12H PRN PO MILD - MODERATE CONSTIPATION; Start 01/20/17 at 07:00 Sennosides (Senokot) 17.2 mg Q12H PRN PO MODERATE - SEVERE CONSTIPATION; Start 01/20/17 at 07:00 Bisacodyl (Dulcolax Supp) 10 mg DAILY PRN RECTAL SEVERE CONSITIPATION; Start at 07:00 Lactulose 30 ml 30 ml DAILY PRN PO SEVERE CONSITIPATION; Start 01/20/17 at 07:00 Ampicillin Sodium/ Sulbactam Sodium/ Sodium Chloride (Unasyn Inj/NS Inj) 100 ml @ 200 mls/hr Q6H IV Last administered on 01/22/17 08:11; Start 01/20/17 at 09: 00 Oxycodone/ Acetaminophen (Percocet 5-325 Mg) 1 tab Q4H PRN PO PAIN SCALE 1 TO 4 Last administered on 01/21/17 20:45; Start 01/20/17 at 07:15 Oxycodone/ Acetaminophen (Percocet 5-325 Mg) 2 tab Q4H PRN PO PAIN SCALE 5 TO 10 Last administered on 01/22/17 08:21; Start 01/20/17 at 07:15 Meperidine HCl (*DEMEROL INJ PERIprocedural ONLY) 25 mg STK-MED ONCE .ROUTE Last administered on 01/20/17 20:44; Start 01/20/17 at 20:44; Stop 01/20/17 at 20: 45; Status DC Neomycin/Polymyxin (Neosporin G.u. Irr) 3 ml STK-MED ONCE TOPICAL Last administered on 01/20/17 19:50; Start 01/20/17 at 19:50; Stop 01/20/17 at 21:30; Status DC Lidocaine HCl (Xylocaine 2% Inj) 50 ml STK-MED ONCE INFIL Last administered on 01/20/17 20:10; Start 01/20/17 at 20:10; Stop 01/20/17 at 21:31; Status DC Fentanyl Citrate (fentaNYL INJ) 250 mcg STK-MED ONCE .ROUTE ; Start 01/20/17 at 23:53; Stop 01/20/17 at 23:54; Status DC A/P Assessment and Plan A/P - left hand dog-bite cellulitis s/p Incision and drainage abscess extensor tendon sheath, left hand and Incision and drainage flexor tendon sheath, left ring finger. wound culture with pasteurella- change to po Augmentin. hand surgery follow-up appreciated and cleared for discharge. Discharge Planning dc home with f/u with pcp and hand surgery. see med list. d/w the patient and RN. Love Dove MD Jan 22, 2017 11:26
[2017-01-22] MEDS ORDERED: AUGM875T3 PO (11:28)
[2017-01-22] MEDS ORDERED: OXYC1TAB63 PO (11:28)
--- NOTE | 2017-01-22 11:29 | HHI.DCPOC ---
Discharge Care Plan Diagnosis: (1) Animal bite of hand Your Health Problems Are: Inflammation Swelling Goals to Promote Your Health * To prevent worsening of your condition and complications * To maintain your health at the optimal level Directions to Meet Your Goals Take your medications as prescribed Follow your dietary instruction Follow activity as directed Keep your appointments as scheduled Take your immunizations and boosters as scheduled If your symptoms worsen call your PCP, if no PCP go to Urgent Care Center or Emergency Room Smoking is Dangerous to Your Health. Avoid second hand smoke Call the 24-hour hour crisis hotline for domestic abuse at Love Doev MD Jan 22, 2017 11:29
--- NOTE | 2017-01-22 11:30 | HHI.DS ---
Discharge Summary Admission Date Jan 20, 2017 at 06:22 Discharge Date: Jan 22, 2017 Admitting Diagnosis Left hand cellulitis; animal/dog bite (1) Animal bite of hand ICD Code: S61.459A Diagnosis: Principal (2) Cellulitis of hand, left ICD Code: L03.114 Diagnosis: Principal Procedures 1. Incision and drainage abscess extensor tendon sheath, left hand 2. Incision and drainage flexor tendon sheath, left ring finger. Brief History - From Admission This is a 36-year-old male without significant past medical history who presents to [facility] complaining of a dog bite in his left hand. The patient states that this past he was bitten by a dog that belongs to her [id number]. The patient states that he was having some pain, however he started experiencing worsening pain on Sunday night. He also states he has had fevers and chills. Denies chest pain, short of breath, denies dysuria, denies abdominal pain. Patient states the dog is current on vaccines. CBC/BMP: 01/21/17 0855 01/21/17 0855 Significant Findings Laboratory Tests Test 01/20/17 01/20/17 01/21/17 02:40 12:00 08:55 Monocytes (%) (Auto) 15.6 % 13.0 % (0.0-8.0) (0.0-8.0) Monocytes # (Auto) 1.5 TH/MM3 (0-0.9) Potassium Level 5.2 MEQ/L (3.5-5.1) Carbon Dioxide Level 33.8 MEQ/L (21.0-32.0) Anion Gap 3 MEQ/L (5-15) 3 MEQ/L (5-15) Blood Urea Nitrogen 27 MG/DL (7-18) 25 MG/DL (7-18) Estimat Glomerular Filtration 80 ML/MIN (>89) Rate C-Reactive Protein 4.78 MG/DL (0.00-0.30) Red Blood Count 3.97 MIL/MM3 (4.50-5.90) Hemoglobin 11.3 GM/DL (13.0-17.0) Hematocrit 35.0 % (39.0-51.0) Platelet Count 145 TH/MM3 (150-450) Calcium Level 7.9 MG/DL (8.5-10.1) Alkaline Phosphatase 42 U/L (45-117) Total Protein 5.6 GM/DL (6.4-8.2) Albumin 3.0 GM/DL (3.4-5.0) Imaging Last Impressions Hand X-Ray 01/20/17 0000 Signed Impressions: Service Date/Time: Friday, January 20, 2017 03:12 - CONCLUSION: Unremarkable examination of the left hand. Bipin Palacios MD PE at Discharge GENERAL: This is a well-nourished, well-developed patient, in no apparent distress. CARDIOVASCULAR: Regular rate and regular rhythm without murmurs, gallops, or rubs. RESPIRATORY: Clear to auscultation. Breath sounds equal bilaterally. No wheezes , rales, or rhonchi. GASTROINTESTINAL: Abdomen soft, non-tender, nondistended. Normal, active bowel sounds MUSCULOSKELETAL:left hand covered with clean dressing. NEURO: Alert & Oriented x4 to person, place, time, situation. Moves all ext x4 Hospital Course - left hand dog-bite cellulitis s/p Incision and drainage abscess extensor tendon sheath, left hand and Incision and drainage flexor tendon sheath, left ring finger. wound culture with pasteurella- change to po Augmentin. hand surgery follow-up appreciated and cleared for discharge. Pt Condition on Discharge: Good Discharge Disposition: Discharge Home Discharge Time: <= 30 minutes Discharge Instructions DIET: Follow Instructions for: Heart Healthy Diet Activities you can perform: Regular-No Restrictions Follow up Referrals: Hand Surgery PCP Follow-up New Medications: Amoxicillin-Clavulanate (Augmentin) 875-125 Mg Tab 1 TAB PO BID Infection Days 10 Ref 0 TAB Oxycodone-Acetaminophen (Oxycodone-Acetaminophen) 5-325 mg Tab 1 TAB PO Q6HR PRN pain #12 Ref 0 TAB Love Dove MD Jan 22, 2017 11:29
== END 2017-01-22 12:24 | disposition home or self-care (01) | DRG 513 ==
LOC: NEPC 01:44 → NEDA 06:22 → N05B 09:37
PROVIDERS: ADMIT Internal Medicine; ATTEND Internal Medicine
PROC: 0L980ZZ Drainage of Left Hand Tendon, Open Approach (ICD-10-PCS; principal; 2017-01-20 19:30)
DX: M65.042 Abscess of tendon sheath, left hand (principal); L03.114 Cellulitis of left upper limb; C95.91 Leukemia, unspecified, in remission; E87.5 Hyperkalemia; B96.89 Other specified bacterial agents as the cause of diseases classified elsewhere; F17.210 Nicotine dependence, cigarettes, uncomplicated; L40.9 Psoriasis, unspecified; S61.255A Open bite of left ring finger without damage to nail, initial encounter; S61.452A Open bite of left hand, initial encounter; W54.0XXA Bitten by dog, initial encounter
CPT/HCPCS: 73130; 80048; 80053; 83605; 85025; 85652; 86140; 86403; 87015; 87040; 87070; 87102; 87116; 87205; 87206; 90471; 90714; 96365; 96375; J0295; J1885; J2175; J2405; J3010; J7030